=== PATIENT | female | born 1950 | race Caucasian/White ===

== ENCOUNTER → 2018-03-19 | Outpatient (CLI) | payer MEDICARE, OTHER | LOC: LAB EV 18:17 → LAB SHORT 18:17 | DX: N39.0 Urinary tract infection, site not specified (principal) | CPT/HCPCS: 87086 ==

== ENCOUNTER → 2019-03-11 | Outpatient (CLI) | payer MEDICARE, OTHER ==
[2019-03-16 08:13] LABS: HPV 16 Negative (Negative); HPV 18 Negative (Negative); HPV OTHER HR TYPES Negative (Negative)
== END | disposition home or self-care (01) ==
LOC: LAB 19:05 → LAB SHORT 19:05
PROVIDERS: Nurse Practitioner Family
DX: Z01.411 Encounter for gynecological examination (general) (routine) with abnormal findings (principal); N95.0 Postmenopausal bleeding
CPT/HCPCS: 87624; G0145

== ENCOUNTER → 2019-10-05 | Outpatient (CLI) | payer MEDICARE, OTHER ==
[~2019-10-05] MED LIST: Climara Pro Pa1 EACH TD; Imitrex50 MG PO; NAPR220 PO; VALACYCLOVIR500 MG PO
== END | disposition home or self-care (01) ==
LOC: LAB SHORT 12:00 → LAB EV 12:00
DX: J02.9 Acute pharyngitis, unspecified (principal); R53.83 Other fatigue
CPT/HCPCS: 84443; 87081

== ENCOUNTER 2020-12-03 06:19 | Day surgery (SDC) | payer MEDICARE ==
[~2020-12-03] VITALS: Ht 160 cm; Wt 79.2 kg
[~2020-12-03 06:19] MED LIST changes: +CODACE30 PO; +Voltaren100 GM
--- NOTE | 2020-12-03 07:57 | NUR ---
12/03/20 0757 Keely Alvarez 1 MG EPI ADDED TO THE FIRST BAG OF LR FOR IRRIGATION PER ORDER.
== END 2020-12-03 09:50 | disposition home or self-care (01) ==
LOC: ORSCSDS 06:19
PROVIDERS: Orthopaedic Surgery
PROC: 0SBC4ZZ Excision of Right Knee Joint, Percutaneous Endoscopic Approach (ICD-10-PCS; principal; 2020-12-03 07:30)
DX: S83.241A Other tear of medial meniscus, current injury, right knee, initial encounter (principal); S83.281A Other tear of lateral meniscus, current injury, right knee, initial encounter; M17.11 Unilateral primary osteoarthritis, right knee; Z87.891 Personal history of nicotine dependence
CPT/HCPCS: A9270-GY; J0171; J0690; J1100; J1885; J2250; J2405; J2704; J3010; J7120

== ENCOUNTER → 2023-01-15 | Outpatient (CLI) | payer MEDICARE | END | disposition home or self-care (01) | LOC: LAB SHORT 09:47 | DX: M79.604 Pain in right leg (principal) | CPT/HCPCS: 85379 ==

== ENCOUNTER → 2023-01-22 | Outpatient (CLI) | payer MEDICARE ==
[2023-01-23 11:41] LABS: Candida species (DNA Probe) Negative (NEGATIVE); G. vaginalis (DNA Probe) Negative (NEGATIVE); T. vaginalis (DNA Probe) Negative (NEGATIVE)
== END | disposition home or self-care (01) ==
LOC: LAB SHORT 15:45
PROVIDERS: Physician Assistant
DX: N34.2 Other urethritis (principal)
CPT/HCPCS: 87086; 87480; 87510; 87660

== ENCOUNTER → 2023-02-24 | Outpatient (CLI) | payer MEDICARE ==
[2023-02-24 13:06] LABS: BASOPHILS ABSOLUTE AUTO 0.04 K/mm3 (0.00-0.23); BASOPHILS PERCENT AUTO 1 % (0-2); EOSINOPHILS ABSOLUTE AUTO 0.09 K/mm3 (0.00-0.68); EOSINOPHILS PERCENT AUTO 1 % (0-6); Hematocrit 42.5 % (33.0-51.0); Hemoglobin 14.6 g/dL (11.5-16.0); IMMATURE GRAN ABSOLUTE AUTO 0.01 K/mm3 (0.00-0.10); IMMATURE GRAN PERCENT AUTO 0 % (0-1); LYMPHOCYTES ABSOLUTE AUTO 2.12 K/mm3 (0.84-5.20); LYMPHOCYTES PERCENT AUTO 32 % (21-46); MONOCYTES ABSOLUTE AUTO 0.46 K/mm3 (0.16-1.47); MONOCYTES PERCENT AUTO 7 % (4-13); Mean Corpuscular HGB 32.7 pg (26.0-34.0); Mean Corpuscular HGB Conc 34.4 g/dL (31.5-36.5); Mean Corpuscular Volume 95 fL (80-100); Mean Platelet Volume 8.4 fL (9.1-12.4); NEUTROPHILS ABSOLUTE AUTO 4.02 K/mm3 (1.96-9.15); NEUTROPHILS PERCENT AUTO 60 % (41-73); Platelet Count 246 K/mm3 (150-400); RDW Coefficient Variation 12.7 % (11.7-14.2); RDW Standard Deviation 43.8 fL (35.1-46.3); Red Blood Cell Count 4.46 M/mm3 (3.80-5.20); White Blood Cell Count 6.74 K/mm3 (4.00-11.30)
[2023-02-24 13:12] LABS: Bun/Creatinine Ratio 22.6 (12.0-20.0); Creatinine, Blood 0.62 mg/dL (0.40-1.00); Potassium, Blood 3.9 mmol/L (3.5-5.5)
== END | disposition home or self-care (01) ==
LOC: LAB SHORT 13:01 → LAB 13:01
PROVIDERS: Family Medicine
DX: R07.9 Chest pain, unspecified (principal)
CPT/HCPCS: 80048; 84484; 85025

== ENCOUNTER 2025-05-23 09:45 | Day surgery (SDC) | payer MEDICARE ==
[~2025-05-23] VITALS: Ht 157.5 cm; Wt 70.3 kg
[2025-05-23] VITALS (12 sets, daily range): BP systolic 95–131; BP diastolic 47–70
[~2025-05-23 09:45] MED LIST changes: +CLIMARA PRO PA1 EACH TOP; -Climara Pro Pa1 EACH TD; +MINIVELLE TOP; +SUMA25 PO; +VALA500 PO
[2025-05-23] MEDS ORDERED: OxyCODONE HCL 10 MG TABCR PO SCH (09:55)
[2025-05-23] MEDS ORDERED: Chlorhexidine Mouth Care 15 ML UDC MT SCH (09:55)
[2025-05-23] MEDS ORDERED: Lactated Ringer's 1,000 ML IV SCH ×2 (09:55→11:20)
[2025-05-23] MEDS ORDERED: Acetaminophen 500 MG Tab PO SCH ×2 (09:55→16:00)
[2025-05-23] MEDS ORDERED: CeFAZolin Sodium 2,000 MG in NS 100 ML IV SCH ×2 (09:55→20:30)
[2025-05-23] MEDS ORDERED: Ropivacaine 0.5% HCl/Pf 123.125 MG,EPINEPHrine HCL 0.25 MG,Ketorolac Tromethamine 15 MG... INFIL SCH (09:55)
[2025-05-23] MEDS ORDERED: Tranexamic Acid 100 ML IV SCH (10:02)
[2025-05-23] MEDS ORDERED: Caffeine 200 MG Tablet PO ONE (10:25)
[2025-05-23] MEDS ORDERED: Midazolam HCl 1MG / ML 2ML Vial ONE (10:33)
[2025-05-23] MEDS ORDERED: propofoL 40 ML IV ONE (10:33)
[2025-05-23] MEDS ORDERED: FentaNYL Citrate 50 MCG/ML 2 ML Injection ONE (10:33)
[2025-05-23] MEDS ORDERED: SUMAtriptan Succinate 25 MG Tab PO PRN (10:40)
[2025-05-23] MEDS ORDERED: ValACYClovir HCL 500 MG Tab PO PRN (10:45)
[2025-05-23] MEDS ORDERED: Bisacodyl 10 MG Supp PR PRN (10:50)
[2025-05-23] MEDS ORDERED: Promethazine HCl 25 MG Tab PO PRN (10:50)
[2025-05-23] MEDS ORDERED: DiphenhydrAMINE HCL 25 MG Cap PO PRN (10:50)
[2025-05-23] MEDS ORDERED: HYDROmorphone HCl/Pf 1MG SYR IV PRN ×3 (10:55→14:00)
[2025-05-23] MEDS ORDERED: Ondansetron HCl 2 MG / ML 2ML Vial IV PRN ×2 (10:55→14:00)
[2025-05-23] MEDS ORDERED: Magnesium Hydroxide Conc 10 ML UDC PO PRN (10:55)
[2025-05-23] MEDS ORDERED: OxyCODONE HCL 5 MG TAB PO PRN ×2 (11:00)
[2025-05-23] MEDS ORDERED: Metoclopramide HCl 5MG / ML 2ML Vial IV PRN ×2 (11:00→14:00)
--- NOTE | 2025-05-23 11:00 | NUR ---
PT AMBULATORY INTO SDS. PT STATES THAT SHE IS ONLY IN PAIN WHEN AMBULATING.[place]-PT LEFT HEARING AIDES AT HOME.HISTORY AND ALLERGIES REVIEWED. LUNGS CLEAR. VS WDL. NPO STATUS CONFIRMED. CHLORHEXIDINE SHOWER AND WIPE X 2. PT GLASSES TO PACU. PT CLOTHING IN BELONGINGS BAG BELOW BED. PT PURSE AND PHONE GIVEN TO PT FAUSTO.
[2025-05-23] MEDS ORDERED: Phenylephrine HCl 100 MCG/ML-NS 10MLSYR (1MG/10ML) ONE (12:56)
[2025-05-23] MEDS ORDERED: Labetalol HCL 5 MG/ML 4ML Injection (Single Dose) IV PRN (14:05)
[2025-05-23] MEDS ORDERED: Atropine Sulfate 0.1 MG/ML 10ML SYR IV PRN (14:05)
[2025-05-23] MEDS ORDERED: FentaNYL Citrate 50 MCG/ML 2 ML Injection IV PRN (14:05)
[2025-05-23] MEDS ORDERED: Albuterol 2.5 MG/3 ML VIAL INH PRN (14:05)
[2025-05-23] MEDS ORDERED: Ketorolac Tromethamine 15mg Vial IV PRN (14:05)
--- NOTE | 2025-05-23 15:28 | NUR ---
ARRIVAL TO UNIT PT ARRIVED TO UNIT FROM PACU, S/P RTHA. PT REPORTS PAIN AT 7/10 ON ARRIVAL. TOLERATED PO, MEDICATED PER EMAR. POLAR YUE AND VERONICA HOSE IN PLACE. RAGINI WRAP AND TELFA CDI UNDERNEATH. SPOUSE AT BEDSIDE. EDUCATED ON PLAN FOR DISCHARGE. PT STATES THAT [place] AND THE LATEST THEY CAN LEAVE IS 8PM. SPOUSE STATES PRESCRIPTIONS ALREADY PICKED UP.
--- NOTE | 2025-05-23 17:06 | NUR ---
SHIFT SUMMARY PT PAIN IMPROVED AFTER IV MEDICATION PT HAS YET TO GET OOB BUT SENSATION IS INTACT AND SHE IS EAGER TO WORK WITH THERAPY. TOLERATING DIET WELL. PLAN IS FOR PATIENT TO DISCHARGE ONCE SHE VOIDS AND AMBUALTES.
[2025-05-23] MEDS ORDERED: Ketorolac Tromethamine 15mg Vial IV SCH (18:00)
[2025-05-23] MEDS ORDERED: Docusate Sodium 100 MG Cap PO SCH (21:00)
[2025-05-24] VITALS (8 sets, daily range): BP systolic 84–112; BP diastolic 43–58
[2025-05-24 04:27] LABS: BASOPHILS ABSOLUTE AUTO 0.01 K/mm3 (0.00-0.23); BASOPHILS PERCENT AUTO 0 % (0-2); EOSINOPHILS PERCENT AUTO 2 % (0-6); Hematocrit 35.5 % (33.0-51.0); Hemoglobin 11.7 g/dL (11.5-16.0); IMMATURE GRAN ABSOLUTE AUTO 0.01 K/mm3 (0.00-0.10); IMMATURE GRAN PERCENT AUTO 0 % (0-1); LYMPHOCYTES ABSOLUTE AUTO 1.02 K/mm3 (0.84-5.20); LYMPHOCYTES PERCENT AUTO 16 % (21-46); MONOCYTES ABSOLUTE AUTO 0.72 K/mm3 (0.16-1.47); MONOCYTES PERCENT AUTO 11 % (4-13); Mean Corpuscular HGB 32.8 pg (26.0-34.0); Mean Corpuscular Volume 99 fL (80-100); Mean Platelet Volume 8.6 fL (9.1-12.4); NEUTROPHILS ABSOLUTE AUTO 4.49 K/mm3 (1.96-9.15); NEUTROPHILS PERCENT AUTO 71 % (41-73); Platelet Count 175 K/mm3 (150-400); RDW Standard Deviation 47.8 fL (35.1-46.3); Red Blood Cell Count 3.57 M/mm3 (3.80-5.20); White Blood Cell Count 6.35 K/mm3 (4.00-11.30)
[2025-05-24 04:53] LABS: Bun/Creatinine Ratio 20.9 (12.0-20.0); Calcium, Blood 8.1 mg/dL (8.5-10.1); Creatinine, Blood 0.67 mg/dL (0.40-1.00); Potassium, Blood 4.3 mmol/L (3.5-5.5)
--- NOTE | 2025-05-24 06:24 | NUR ---
SHIFT SUMMARY PT S/P R TKA. PT HAS RESTED OFF AND ON T/O THE NIGHT. PT REPORTS THAT SHE WAS SEEING "PRISMS" IN HER EYES AT SHIFT CHANGE AFTER AMBULATING TO THE BATHROOM. PT REPORTS PREVIOUS HX OF THIS AND WAS TOLD BY HER THAT MIGRANES ARE A CONTRIBUTING FACTOR. PT ENDORSES HX OF MIGRANES. SHE STATES EPISODE WAS BRIEF AND WENT AWAY. PAIN IN LEFT KNEE MANAGED PER EMAR. AT THE BEGINNING OF THE SHIFT PT HAD A LITTLE BIT OF NAUSEA AFTER TAKING OXYCODONE, NO EMESIS. ZOFRAN GIVEN WITH EFFECT. PT HAS NO MORE NAUSEA SINCE THAT TIME. PT HAS BEEN UP AND AMBULATING, ADEQUATE URINE OUTPUT. SURGICAL SITE WNL. PT BLOOD PRESSURES HAVE BEEN SOFT THIS AM, PT IS ASYMPTOMATIC. SHE DENIES DIZZINESS, LABS ARE WNL. ART THERAPIST RONDA MADE AWARE, AND DR. ANDREA WAS NOTIFIED OF SOFT BP'S THIS AM. HE IS AWARE THAT MAINTENANCE FLUIDS ARE GOING. HE STATES CONTINUE MAINTENANCE FLUIDS AND TO PUSH PO FLUIDS. GAVE NO ADDITIONAL ORDERS FOR LOW BP. PT ANTICIPATING DC AT THIS TIME.
--- NOTE | 2025-05-24 06:34 | NUR ---
BLOOD PRESSURE PT BLOOD PRESSURE HAVE BEEN SOFT THIS AM WITH REPEATED CHECKS, PT ASYMPTOMATIC. DR. ANDREA WAS NOTIFIED. HE STATES TO CONTINUE MAINTENANCE FLUIDS AND TO ENC PO FLUIDS. HE GAVE NO ADDITIONAL ORDERS.
[2025-05-24] MEDS ORDERED: Aspirin 81 MG Chew PO SCH (09:00)
[2025-05-24] MEDS ORDERED: ASPI81CH PO (09:42)
--- NOTE | 2025-05-24 10:10 | NUR ---
DISCHARGE NOTE POD 1 R TKA. PATIENT ALERT AND ORIENTED X4. COMMUNICATES NEEDS EFFECTIVELY. BP SOFT - SBP 90s-100s. ASYMPTOMATIC. MD AWARE - NO NEW ORDERS RECEIVED. PATIENT ABLE TO DC HOME TODAY. PAIN MANAGED W/ PRESCRIBED MEDICATION AND COOLING DEVICE. DRESSING C/D/I - NO SHADOWING NOTED ON RAGINI WRAP. VOIDING. TOLERATING PO INTAKE. WORKED W/ PHYSICAL THERAPY TWICE THIS MORNING - SPOUSE PRESENT DURING ONE SESSION. AMBULATING W/ SBA FWW GB. IV REMOVED. WRITTEN AND VERBAL EDUCATION PROVIDED - PATIENT AND SPOUSE STATE UNDERSTANDING. PERSONAL BELONGINGS WITH PATIENT. SPOUSE TO TRANSPORT PATIENT HOME - PATIENT TRANSFERRED OFF UNIT VIA .
== END 2025-05-24 10:15 | disposition home or self-care (01) ==
LOC: ORSCMMR 09:45 → ORD 11:00 → ORSCMMR 11:00 → SURS 14:59 → ORSCMMR 05-24 10:15
PROVIDERS: Orthopaedic Surgery
PROC: 0SRC0JA Replacement of Right Knee Joint with Synthetic Substitute, Uncemented, Open Approach (ICD-10-PCS; principal; 2025-05-23 11:00)
DX: M17.11 Unilateral primary osteoarthritis, right knee (principal)
CPT/HCPCS: 36415; 73560-RT; 80048; 85025; 97110; 97116; 97161; 97530; A9270; C1713; C1776; J0171; J0690; J0735; J1171; J1885; J2250; J2371; J2405; J2704; J2795; J3010; J7120

== ENCOUNTER 2025-08-03 09:03 | Day surgery (SDC) | payer MEDICARE ==
[~2025-08-03] VITALS: Ht 160 cm; Wt 71.4 kg
[~2025-08-03 09:03] MED LIST changes: +ASPI81CH PO; +Balanced Salt Epinephrine Irrigation Solution 500 mL IR SCH; +Moxifloxacin HCL 0.5 MG/0.1 ML 0.4MLSYR RIGHTEYE SCH; +Ondansetron 4 MG SoluTab MM PRN; +PHENYLEPHRINE\\TROPICAMIDE\\TETRACAINE OPHTHALMIC DILATING SOLN RIGHTEYE PRN; +Povidone-Iodine 450 DROP/30 ML Solution ONE; +Povidone-Iodine 450 DROP/30 ML Solution RIGHTEYE SCH; +Tetracaine HCl/Pf 0.5% Opth Soln 4 ml ONE; +Triamcinolone Inj Susp 40 MG / ML 1ML Vial INJ SCH; +Triamcinolone Inj Susp 40 MG / ML 1ML Vial ONE
[2025-08-03] MEDS ORDERED: Tetracaine HCl 0.5% Opth Soln 15 ml ONE (09:17)
--- NOTE | 2025-08-03 09:26 | NUR ---
08/03/25 0926 Chantelle Garzon 0924: 10 MG PO VALIUM GIVEN PER ORDERS. PULSE OX ON FINGER, CALL LIGHT IN HAND. PATIENT REPORT INITIAL ANXIETY 03/09.
[2025-08-03] MEDS ORDERED: OXYCODONE-ACET1 EAC3 (09:29)
[2025-08-03] MEDS ORDERED: Tetracaine HCl 0.5% Opth Soln 15 ml RIGHTEYE ONE (09:54)
--- NOTE | 2025-08-03 09:58 | NUR ---
08/03/25 0958 Keely Alvarez N 131/67 98% ON 10L BLOW BY O2 70 16
[2025-08-03 10:21] VITALS: BP 138/72
== END 2025-08-03 10:31 | disposition home or self-care (01) ==
LOC: ORSCSDS 09:03
PROVIDERS: Ophthalmology
PROC: 08RJ3JZ Replacement of Right Lens with Synthetic Substitute, Percutaneous Approach (ICD-10-PCS; principal; 2025-08-03 10:30)
DX: H25.811 Combined forms of age-related cataract, right eye (principal); H52.201 Unspecified astigmatism, right eye
CPT/HCPCS: A9270; J3301; V2632

== ENCOUNTER 2025-08-10 09:02 | Day surgery (SDC) | payer MEDICARE ==
[~2025-08-10] VITALS: Ht 157.5 cm; Wt 70.4 kg
[~2025-08-10 09:02] MED LIST changes: +Moxifloxacin HCL 0.5 MG/0.1 ML 0.4MLSYR LEFTEYE SCH; -Moxifloxacin HCL 0.5 MG/0.1 ML 0.4MLSYR RIGHTEYE SCH; +OXYCODONE-ACET1 EAC3; +PHENYLEPHRINE\\TROPICAMIDE\\TETRACAINE OPHTHALMIC DILATING SOLN LEFTEYE PRN; -PHENYLEPHRINE\\TROPICAMIDE\\TETRACAINE OPHTHALMIC DILATING SOLN RIGHTEYE PRN; +Povidone-Iodine 450 DROP/30 ML Solution LEFTEYE SCH; -Povidone-Iodine 450 DROP/30 ML Solution RIGHTEYE SCH
--- NOTE | 2025-08-10 09:58 | NUR ---
08/10/25 0958 Mary Vega PATIENT REPORTS ANXIETY LEVEL AT 1-2/10 PRIOR TO ADMINISTRATION OF VALIUM 10MG PO @ 0951. PT C/O OF HAVING SIGNIFICANTLY INCREASED BACK PAIN AFTER LAST CATARACT SURGERY SO HEAD OF BED RAISED AND KNEES RAISED TO PATIENT PREFERENCE TO SEE IF WE CAN AVOID EXACERBATING BACK PAIN WITH THIS SURGERY. PT REPORTS BACK PAIN 1.5/10 UPON INITIALLY COMING IN TO PREOP.
[2025-08-10] MEDS ORDERED: IBUP200 PO (10:01)
--- NOTE | 2025-08-10 10:37 | NUR ---
08/10/25 Barbara Zambrano HR:69 BP:120/61 SPO2:100% ON 10L BLOW BY O2
[2025-08-10 11:28] VITALS: BP 129/67
== END 2025-08-10 11:23 | disposition home or self-care (01) ==
LOC: ORSCSDS 09:02
PROVIDERS: Ophthalmology
PROC: 08RK3JZ Replacement of Left Lens with Synthetic Substitute, Percutaneous Approach (ICD-10-PCS; principal; 2025-08-10 10:30)
DX: H25.812 Combined forms of age-related cataract, left eye (principal); H52.202 Unspecified astigmatism, left eye; Z96.1 Presence of intraocular lens; Z79.899 Other long term (current) drug therapy
CPT/HCPCS: A9270; J3301; V2632